=== PATIENT | female | born 1985 | race African-American/Black ===

== ENCOUNTER 2017-02-10 05:52 | Inpatient (IN) | payer BC ==
[2017-02-10] MEDS ORDERED: BRETHINE SUB-Q PRN (06:00)
[2017-02-10] MEDS ORDERED: ePHEDrine SULFATE IV PRN (06:00)
[2017-02-10] MEDS ORDERED: XYLOCAINE 2% INFILTRATI ONE (06:00)
[2017-02-10] MEDS ORDERED: LACTATED RINGERS 1,000 ML IV SCH (06:00)
[2017-02-10] MEDS ORDERED: MINERAL OIL PO PRN (06:00)
[2017-02-10] MEDS ORDERED: PITOCin/NS 20 UNIT/1000ML DRIP 20 UNITS/1,000 ML BAG IV SCH (06:00)
[2017-02-10] MEDS ORDERED: SUBLIMAZE IV PRN (06:00)
--- NOTE | 2017-02-10 06:09 | History and Physical Report ---
History of Present Illness Date of examination: 02/10/17 (srom this AM) Date of admission: 02/10/17 05:57 History of present illness: EDC Confirmation: 02/24/2017 Gestational Age: 16 5/7 weeks Past History : 2 Term Births: 1 Living Children: 1 Para: 1 # 1 Delivery date: 2013 Weeks Gestation: 39 Delivery type: Delivery location: [place] Sex: Female Past Medical History: Negative Past Medical History Past Surgical History: Negative Past Surgical History Past Medical History Surgery (Non-manager export): Negative Past Surgical History Abnormal PAP: negative SANTI Exposure: negative Infertility: negative Uterine Anomaly: negative Uterine Surgery (not C/S): negative Other Gynecologic Problems: negative Medical History Comments: NEGATIVE Family Hx: UNKNOWN Social Hx: NO E/T/D Infection History Hx of STD: none Partner hx. of genital herpes: no Rash, Viral, or Febrile illness since last LMP? no Varicella/Chicken Pox Status: Unknown Active Medications (reviewed today): None Current Allergies (reviewed today): * ANICETO (Critical) Laboratory Results Routine Urinalysis Protein: Negative Glucose: Negative Urine HCG: positive Review of Systems General Denies fever, chills, sweats, anorexia, fatigue, weakness, malaise, weight loss and sleep disorder. Denies nausea, vomiting, headache, swelling of legs, abdominal pain, vaginal discharge, vaginal bleeding and contractions. Denies vaginal discharge, incontinence, dysuria, hematuria, urinary frequency, amenorrhea, menorrhagia, abnormal vaginal bleeding, pelvic pain, genital sores, decreased libido, painful periods, painful sex, urinary urgency, hot flashes, vaginal dryness, vaginal itching and vaginal odor. CV Denies chest pains, palpitations, syncope, dyspnea on exertion, orthopnea, PND and peripheral edema. Resp Denies cough, dyspnea at rest, excessive sputum, hemoptysis, wheezing and pleurisy. GI Denies nausea, vomiting, diarrhea, constipation, change in bowel habits, abdominal pain, melena, hematochezia, jaundice, gas/bloating, indigestion/ heartburn, dysphagia and odynophagia. Endo Denies cold intolerance, heat intolerance, polydipsia, polyphagia, polyuria and unusual weight change. Breast Denies left breast lump, right breast lump, nipple discharge, bloody discharge from nipple, breast pain, abnormal mammogram and breast enlargement. MS Denies back pain, joint pain, joint swelling, muscle cramps, muscle weakness, stiffness, arthritis, sciatica, restless legs, leg pain at night and leg pain with exertion. Derm Denies rash, itching, dryness and suspicious lesions. Neuro Denies paralysis, paresthesias, headache, seizures, tremors, vertigo, transient blindness, frequent falls, frequent headaches and difficulty walking. Psych Denies depression, anxiety, irritability and mood swings. Eyes Denies blurring, diplopia, irritation, discharge, vision loss, eye pain and photophobia. ENT Denies earache, ear discharge, tinnitus, decreased hearing, nasal congestion, nosebleeds, sore throat and hoarseness. Allergy Denies urticaria, allergic rash, hay fever and recurrent infections. Heme Denies abnormal bruising, bleeding and enlarged lymph nodes. PHYSICAL EXAM HEENT: PERRLA, normal conjunctiva, external nose and nasal mucosa normal, oropharynx clear Neck/Thyroid: supple, thyroid normal Skin no significant abnormal lesions or rashes Chest: respiratory effort normal, clear to auscultation Breasts: normal without skin changes or masses CV: regular, normal S1-S2, no murmur, no rub, no gallop Abdomen: normal bowel sounds, soft, nontender, no HSM Musculoskeletal: grossly normal ROM in joints, no joint tenderness or muscle weakness Neuro: grossly normal DTRs, sensation, strength, cranial nerves Extremities: no clubbing, cyanosis, or edema [employer]ACHINE OPERATOR Exams Vulva/Vagina: No lesions, normal BUS, normal rugae Cervix: No lesions; no cervical motion tenderness Uterus: normal size and position, midline, mobile Fundal Ht: 16wks FHT: 140s Adnexae: no masses or tenderness Rectovaginal: no masses or tenderness Past History - Obstetrical History Expected Date of Delivery: 02/24/17 Actual Gestation: 38 Week(s) 0 Day(s) : 2 Para: 1 Hx # Term Pregnancies: 1 Number of Living Children: 1 Medications and Allergies Allergies Allergy/AdvReac Type Severity Reaction Status Date / Time aniceto Allergy Itching Verified 02/10/17 06:03 - Physical Exam Breasts: Positive: deferred Cardiovascular: Regular rate, Normal S1, Normal S2 Lungs: Positive: Normal air movement Abdomen: Positive: normal appearance, soft, normal bowel sounds. Negative: distention, tenderness Genitourinary (Female): Positive: normal external genitalia Vulva: both: normal Vagina: Positive: normal moisture. Negative: discharge Cervix: Negative: lesion, discharge Uterus: Positive: normal size, normal contour Adnexa: both: normal Anus/Rectum: Positive: normal perianal skin, heme negative. Negative: rectal mass, hemorrhoids Extremities: Positive: normal Deep Tendon Reflex Grade: Normal +2 - Obstetrical FHR: category 1 Uterine Contraction Monitor Mode: External Cervical Dilatation: 7 Cervical Effacement Percentage: 70 station: -2 Uterine Contraction Pattern: Regular Uterine Contraction Intensity: Strong/Firm Results All other labs normal. Laboratory Data-Patient Name: SHEA CALDERON Test Date Result Blood Type 10/11/2016 O Rh 10/11/2016 Positive Antibody Screen Rubella 10/11/2016 Serology (RPR) 01/24/2017 HBsAg 10/11/2016 Negative Hemoglobin 11/12/2016 11.2 Hematocrit 11/12/2016 35.5 Platelets 10/11/2016 245 [id number] Chlamydia DNA 01/24/2017 Negative GC DNA/Culture 01/24/2017 Urine Culture 10/11/2016 Final report Group B Strep cult negative PAP HIV 01/24/2017 AFP/Quad Screen Glucola Test 3hr GTT (Fasting) 1 hr 2 hr 3 hr [facility]-Patient Name:SHEA CALDERON Test Date Result Varicella Ab 11/12/2016 negative Sickle Cell 10/11/2016 Negative PPD Fibronectin Cystic Fibrosis Parvovirus TSH Free T4 Hepatitis C ALT AST Uric Acid Creatinine 24 hr Urine Protein DAISY Assessment and Plan 31yo in active labor with SROM @ home SVE 7 cm on arrival GBS negative Orders in EMR
[2017-02-10] MEDS ORDERED: BENADRYL PO PRN (06:47)
[2017-02-10] MEDS ORDERED: TYLENOL PO PRN (06:47)
[2017-02-10] MEDS ORDERED: NORCO 5/325 PO PRN (06:47)
[2017-02-10] MEDS ORDERED: ZOFRAN IV PRN (06:47)
[2017-02-10] MEDS ORDERED: DULCOLAX PR PRN (06:47)
[2017-02-10] MEDS ORDERED: TUCKS PAD TP PRN (06:47)
[2017-02-10] MEDS ORDERED: MILK OF MAGNESIA PO PRN (06:47)
[2017-02-10] MEDS ORDERED: LANSINOH TP PRN (06:47)
[2017-02-10] MEDS ORDERED: PHENERGAN PO PRN (06:47)
[2017-02-10] MEDS ORDERED: PERCOCET 5/325 PO PRN (06:47)
--- NOTE | 2017-02-10 06:59 | Procedure Note ---
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 2nd degree laceration repaired with 2-0 vicryl over lidocaine 8/9, EFW 6- 15, EBL 300 Pitocin IVFs Of note baby has a 6mm nevus over her left eyebrow, parents aware. Mom and baby remain LDR stable - Infant A at 1 minute: 8 at 5 minutes: 9 Gender: Female (wgt 6-14)
[2017-02-10] MEDS ORDERED: SODIUM CHLORIDE FLUSH SYRINGE 10 ML IV PRN (07:00)
[2017-02-10 07:59] LABS: Hematocrit 39.1 % (30.3-42.9); Hemoglobin 12.9 gm/dl (10.1-14.3); Mean Corpuscular HGB Conc 33 % (30-34); Mean Corpuscular Hemoglobin 32 pg (28-32); Mean Corpuscular Volume 97 fl (79-97); Platelet Count 233 K/mm3 (140-440); Red Blood Count 4.03 M/mm3 (3.65-5.03); Red Cell Distribution Width 12.9 % (13.2-15.2); White Blood Count 9.6 K/mm3 (4.5-11.0)
[2017-02-10] MEDS ORDERED: [UNRECOGNIZED DRUG - OTHER] SQ ONE (13:00)
[2017-02-10] MEDS ORDERED: VARICELLA VIRUS VACCINE LIVE SQ ONE (13:00)
[2017-02-10] MEDS: COLACE PO SCH ×2 (13:33→21:42)
[2017-02-10] MEDS: PRENATAL VITAMIN PO SCH (13:33)
[2017-02-10] MEDS: MOTRIN PO SCH ×2 (13:33→20:07)
[2017-02-10 20:31] LABS: Hemoglobin 10.3 gm/dl (10.1-14.3)
[2017-02-11] MEDS: MOTRIN PO SCH ×3 (05:48→13:20)
[2017-02-11] MEDS ORDERED: BOOSTRIX IM ONE (06:00)
[2017-02-11] MEDS ORDERED: M-M-R II VACCINE SUB-Q ONE (06:47)
--- NOTE | 2017-02-11 07:47 | Progress Note ---
Assessment and Plan patient doing well, no complaints. desires d/c home today if cleared for d/c home. Lochia scant, VSSAF, H&H stable . plan for routine f/u in 1 week. - Patient Problems (1) Single live Current Visit: Yes Status: Acute Subjective - Subjective Date of service: 02/11/17 Principal diagnosis: day #1 s/p Patient reports: appetite normal, voiding normally, pain well controlled, ambulating normally : doing well, nursing well Objective - Vital Signs Latest vital signs: Vital Signs Temp Pulse Resp BP 02/11/17 01:18 98.5 F 53 L 18 137/69 02/10/17 16:10 98.5 F 52 L 18 106/57 02/10/17 12:00 99.4 F 54 L 19 133/65 02/10/17 09:15 98.4 F 70 18 109/63 02/10/17 08:35 61 116/71 02/10/17 08:20 57 L 123/66 02/10/17 08:05 58 L 126/70 02/10/17 07:50 57 L 123/66 Intake and Output 02/10/17 02/11/17 02/11/17 22:59 06:59 14:59 Intake Total 360 180 Output Total 1000 Balance -640 180 Intake: Oral 240 Intake, Free Water 120 180 Output: Urine 1000 Void 1000 Other: Total, Intake Amount 240 Total, Output Amount 500 # Voids Void 1 # Bowel Movements 1 - Exam Breasts: Present: normal Cardiovascular: Present: Regular rate Lungs: Present: Clear to auscultation, Normal air movement Abdomen: Present: normal appearance, soft Vulva: both: normal Uterus: Present: normal, firm, fundal height at umbilicus Extremities: Present: normal Deep Tendon Reflex Grade: Normal +2 Incision: Present: normal, dry, intact - Labs Labs: Abnormal lab results 02/10/17 Range/Units 06:00 RDW 12.9 L (13.2-15.2) %
--- NOTE | 2017-02-11 07:52 | Discharge Summary ---
Providers - Providers Date of Admission: 02/10/17 05:57 Date of discharge: 02/11/17 (desires d/c home) Attending physician: ZAK BAJWA Primary care physician: ZAK BAJWA Hospitalization Reason for admission: active labor Delivery: Episiotomy: none Laceration: 2nd degree Incision: normal, dry, intact Other procedures: none complications: none Discharge diagnosis: IUP at term delivered [place] baby: female Hospital course: uncomplicated vaginal delivery Condition at discharge: Good Disposition: DC-01 TO HOME OR SELFCARE - Discharge Diagnoses (1) Single live Status: Acute Plan - Discharge Medications Prescriptions: Ibuprofen [Motrin 800 MG tab] 800 mg PO Q8HR PRN #30 tablet PRN Reason: Pain - Provider Discharge Summary Activity: routine, no sex for 6 weeks, no heavy lifting 4 weeks, no strenuous exercise Diet: routine Instructions: routine Additional instructions: [] Smoking cessation referral if applicable(refer to patient education folder for contact #) [] Refer to [facility] Booklet Call your doctor immediately for: * Fever > 100.5 * Heavy vaginal bleeding ( >1 pad per hour) * Severe persistent headache * Shortness of breath * Reddened, hot, painful area to leg or breast * Drainage or odor from incision. * Keep incision clean and dry at all times and follow doctor's instructions regarding bathing/showering - Follow up plan Follow up: ZAK BAJWA MD [Primary Care Provider] - 03/17/17 (Congratulations! Please call [phone] to scheduled your visit in 4 weeks. Call for any questions or concerns. )
[2017-02-11 09:32] VITALS: BP 128/82
[2017-02-11] MEDS: COLACE PO SCH (10:51)
[2017-02-11] MEDS: PRENATAL VITAMIN PO SCH (10:51)
[2017-02-11] MEDS ORDERED: VARICELLA VIRUS VACCINE LIVE SQ ONE ×2 (12:00→13:00)
== END 2017-02-11 17:15 | disposition home or self-care (01) | DRG 775 ==
LOC: TRG 05:52 → LD 05:57 → OB 09:26
PROVIDERS: ADMIT Obstetrics & Gynecology; ATTEND Obstetrics & Gynecology
PROC: 10E0XZZ Delivery of Products of Conception, External Approach (ICD-10-PCS; principal; 2017-02-10)
PROC: 0KQM0ZZ Repair Perineum Muscle, Open Approach (ICD-10-PCS; 2017-02-10)
PROC: 3E0234Z Introduction of Serum, Toxoid and Vaccine into Muscle, Percutaneous Approach (ICD-10-PCS; 2017-02-10)
DX: O70.1 Second degree perineal laceration during delivery (principal); Z37.0 Single live birth; Z3A.38 38 weeks gestation of pregnancy; Z23 Encounter for immunization
CPT/HCPCS: 36415; 85014; 85018; 85027; 86592; 86850; 86900; 86901; 90471; 90472; 99211; G0463; J2590